=== PATIENT | female | born 1985 | race Two or more races ===

== ENCOUNTER 2022-04-03 09:22 | Outpatient (REF) | payer MEDICAID, SELFPAY ==
--- NOTE | ~2022-04-03 | XR_ITS ---
EXAMINATION: XR CHEST CLINICAL INFORMATION: Obesity COMPARISON: None TECHNIQUE: 2 views of the chest were obtained. FINDINGS: No significant abnormality is noted involving the heart, lungs, mediastinum, bony thorax or soft tissues. XR/XR chest 2V IMPRESSION: Unremarkable examination.
--- NOTE | 2022-04-03 09:41 | ECG_ITS ---
Test Reason : severe morbid obesity Blood Pressure : / mmHG Vent. Rate : 065 BPM Atrial Rate : 065 BPM P-R Int : 162 ms QRS Dur : 102 ms QT Int : 394 ms P-R-T Axes : 032 -08 021 degrees QTc Int : 409 ms Normal sinus rhythm Normal ECG No previous ECGs available Referred By: Leonard Garcia Electronically Signed By:ALEIDA DUNHAM MD
[2022-04-03 09:55] LABS: MANUAL DIFF FLAG NO
[2022-04-03 10:14] LABS: Basophils Percent Auto 0.3 % (0-2); Eosinophils Absolute Auto 0.2 X10*3/uL (0.0-0.4); Eosinophils Percent Auto 2.2 % (0-4); Hematocrit 38.8 % (37.0-47.0); Hemoglobin 12.3 g/dl (12.0-16.0); Imm Gran Abs Auto 0.03 X10*3/uL (0.00-0.03); Imm Gran Pct Auto 0.3 % (0.0-0.4); Lymphocytes Absolute Auto 1.8 X10*3/uL (1.2-4.9); Lymphocytes Percent Auto 20.3 % (20-40); Mean Corpuscular HGB Conc 31.7 g/dl (31.0-35.0); Mean Corpuscular Volume 85.1 fL (80.0-98.0); Mean Platelet Volume 10.4 fL (9.4-12.3); Monocytes Absolute Auto 0.5 X10*3/uL (0.1-1.2); Neutrophils Absolute Auto 6.3 x10*3/uL (2.0-8.3); Neutrophils Percent Auto 70.9 % (45-73); Platelet Count 295 X10*3/uL (160-400); Red Blood Count 4.56 X10*6/uL (4.20-5.50); Red Cell Distribution Width 12.2 % (11.0-16.0); White Blood Count 8.8 X10*3/uL (4.8-10.8)
[2022-04-03 10:22] LABS: Estimated Average Glucose 105 mg/dL; Hemoglobin A1c % 5.3 %
[2022-04-03 10:36] LABS: Alanine Aminotransferase 17 U/L (0-31); Albumin Level 4.5 g/dL (3.5-5.0); Alkaline Phosphatase 61 U/L (39-117); Anion Gap 14 (12-20); Aspartate Amino Transferase 14 U/L (5-31); Bilirubin Total 0.3 mg/dL (0.0-1.0); Blood Urea Nitrogen 13 mg/dL (9-16); C Reactive Protein 1.06 mg/dL (< or = 0.50); Calcium 9.2 mg/dL (8.4-10.2); Carbon Dioxide 23 mmol/L (22-29); Chloride 107 mmol/L (96-108); Cholesterol 207 mg/dL; Estimated Glomerular Filt Rate > 60; Glucose Random 88 mg/dL (60-115); HDL Cholesterol 41 mg/dL; Iron 52 mcg/dL (30-160); LDL Cholesterol Calculated 143 mg/dl; Percent Iron Saturation 17 % (15-50); Potassium 3.8 mmol/L (3.3-5.1); Sodium 140 mmol/L (135-145); Total Iron Binding Capacity 303 mcg/dL (228-428); Total Protein 7.5 g/dL (6.5-8.0); Triglycerides 115 mg/dL; Unsaturated Iron Binding 251 ug/dL
[2022-04-03 11:01] LABS: Ferritin 113 ng/mL (10-122); Insulin 19 uU/mL (2-29); Vitamin D 25-OH Total 31.2 ng/mL (>30)
[2022-04-03 11:05] LABS: Folate 18.7 ng/mL (> or = 4.0); Vitamin B12 262 pg/mL (200-900)
[2022-04-04 14:04] LABS: H Pylori Breath Test Positive (Negative)
[2022-04-05 13:51] LABS: Calcium (PTHI) 9.3 mg/dL (8.6-10.2); PTHI 101 pg/mL (16-77)
[2022-04-07 12:35] LABS: Vitamin B1 <6 nmol/L (8-30)
[2022-04-07 13:01] LABS: Vitamin A 50 mcg/dL (38-98)
[2022-04-07 23:07] LABS: Zinc 88 mcg/dL (60-130)
== END 2022-04-03 09:23 | disposition home or self-care (01) ==
LOC: HO.XRAY 09:22
PROVIDERS: Visit Provider Surgery
DX: E66.01 Morbid (severe) obesity due to excess calories (principal); I10 Essential (primary) hypertension
CPT/HCPCS: 36415; 71046; 80053; 80061; 82306; 82607; 82728; 82746; 83013; 83036; 83525; 83540; 83970; 84425; 84443; 84590; 84630; 85025; 86140; 93005; 99211

== ENCOUNTER 2022-04-07 07:54 | Outpatient (REF) | payer MEDICAID, SELFPAY ==
--- NOTE | ~2022-04-07 | US_ITS ---
EXAMINATION: US COMPLETE ABDOMEN WITH LIVER ELASTOGRAPHY CLINICAL INFORMATION: Obesity COMPARISON: None. TECHNIQUE: Real-time imaging of the abdominal viscera. Noninvasive ultrasound liver fibrosis assessment is performed using Juliette ElastPQ point quantification shear wave elastography (2D-SWE) with a C5-2 MHz transducer. Multiple elastography samples are obtained. FINDINGS: PANCREAS: The visualized pancreatic head and body are normal in appearance. The remainder of the pancreas is obscured from visualization by the overlying bowel gas. ABDOMINAL AORTA: The proximal and distal aortic segments are normal in caliber. Mid abdominal aorta is not well visualized due to bowel gas. INFERIOR VENA CAVA: Visualized portions are normal. LIVER: Echotexture is slightly increased. The liver is normal in size and contour. No focal lesion or intrahepatic biliary duct dilatation. The right lobe measures 16 cm in length. The left lobe measures 11 cm in length. Portal flow is normal/hepatopedal Shear wave liver elastography median stiffness is 1.5 m/s (reference: normal median stiffness is 1.3 m/s or less). IQR/median stiffness to assess sampling precision is 0.32 (reference: good quality data set is IQR/median stiffness of 0.15 or less). GALLBLADDER: Normal. The gallbladder is physiologically distended without evidence of stones, sludge, polyps, wall thickening or pericholecystic fluid. COMMON BILE DUCT: Slightly dilated measuring 0.8 cm in diameter. RIGHT KIDNEY: Normal. No hydronephrosis. No renal calculi or focal parenchymal lesions. The kidney measures 11 cm in maximum dimension. LEFT KIDNEY: Small 2 mm echogenic density questionable for a stone in the midpole. No hydronephrosis. No focal parenchymal lesions. The kidney measures 12 cm in maximum dimension. SPLEEN: Normal. The spleen measures 10 cm in maximum dimension. FREE FLUID: None. US/US abdomen comp w elastography IMPRESSION: 1. Impression: Limited exam. Echogenic liver probably representing fatty infiltration. Normal-appearing gallbladder. Slightly prominent common bile duct. Question small left renal stone. Limited visualization of the pancreas and aorta. 2. Liver elastography: Limited due to sampling error. REFERENCE: Society of Radiologists in Ultrasound Liver Stiffness Thresholds (2020): LIVER STIFFNESS THRESHOLDS: *Liver Stiffness equal or less than 1.3 m/s: High probability of being normal. *Liver Stiffness less than 1.7 m/s: In the absence of other known clinical signs, rules out compensated advanced chronic liver disease. *Liver Stiffness 1.7-2.1 m/s: Suggestive of compensated advanced chronic liver disease but need further test for confirmation. *Liver Stiffness over 2.1 m/s: Rules in compensated advanced chronic liver disease. *Liver Stiffness over 2.4 m/s: Suggestive of clinically significant portal hypertension. QUALITY OF DATA SET: *IQR/Median value equal or less than 0.15 implies a quality data set. *IQR/Median value over 0.15 implies a poor quality data set. SIGNIFICANT CHANGE FROM PRIOR EXAM: Significant change if liver stiffness measurement is 10% or greater from prior exam. OTHER CONSIDERATIONS: The stage of liver fibrosis may be overestimated in the setting of acute hepatitis, liver inflammation, elevated liver function tests, hepatic vascular congestion, obstructive cholestasis, non-fasting state, and infiltrative diseases such as amyloidosis and lymphoma. In some patients with NAFLD, the liver stiffness thresholds for compensated advanced chronic liver disease may be lower. In causes other than viral hepatitis and NAFLD, liver stiffness thresholds are not well established.
--- NOTE | ~2022-04-07 | FL_ITS ---
PROCEDURE: XR FLUOROSCOPY UPPER GI WITH AIR CLINICAL INFORMATION: Morbid/severe obesity due to excess calories. COMPARISON: None TECHNIQUE: Routine upper GI air-contrast study was performed in upright and lying position. FINDINGS: Following oral administration of thick barium and effervescent granules there is normal propagation of bolus from the oral cavity through the pharynx, esophagus into stomach without any evidence of obstruction, narrowing or stricture. The course, caliber and peristalsis of the stomach, duodenal bulb and the sweep is normal. The mucosal pattern of stomach and duodenum is normal. There is mild gastroesophageal reflux without hiatal hernia. FLUOROSCOPY TIME: 2.1 minutes DOSE AREA PRODUCT: 39.495 uGy-m2 (microgray-meter squared) FL/FL upper GI w air IMPRESSION: Mild gastroesophageal reflux otherwise unremarkable upper GI air-contrast study.
== END 2022-04-07 07:55 | disposition home or self-care (01) ==
LOC: HO.US 07:54
PROVIDERS: Visit Provider Surgery
DX: E66.01 Morbid (severe) obesity due to excess calories (principal); I10 Essential (primary) hypertension
CPT/HCPCS: 74246; 76705; 76981

== ENCOUNTER → 2022-04-20 09:19 | Outpatient (BNVA) | payer MEDICAID, SELFPAY | PROVIDERS: PCP Family Medicine; Visit Provider Dietitian, Registered | DX: E66.01 Morbid (severe) obesity due to excess calories (principal); Z68.41 Body mass index [BMI] 40.0-44.9, adult | CPT/HCPCS: 97802 ==

== ENCOUNTER → 2022-05-01 11:08 | Outpatient (BNVA) | payer MEDICAID, SELFPAY | PROVIDERS: PCP Family Medicine; Visit Provider Counselor Mental Health | DX: Z11.0 Encounter for screening for intestinal infectious diseases (principal); F32.A Depression, unspecified; E66.01 Morbid (severe) obesity due to excess calories | CPT/HCPCS: 90791; 99211 ==

== ENCOUNTER 2022-05-01 16:28 | Outpatient (REF) | payer MEDICAID, SELFPAY ==
[2022-05-02 13:57] LABS: H Pylori Breath Test Negative (Negative)
== END 2022-05-01 16:29 | disposition home or self-care (01) ==
LOC: HO.LNP 16:28
PROVIDERS: Visit Provider Physician Assistant Surgical
DX: Z01.818 Encounter for other preprocedural examination (principal)
CPT/HCPCS: 83013

== ENCOUNTER → 2022-06-26 08:25 | Outpatient (BNVA) | payer MEDICAID, SELFPAY | PROVIDERS: PCP Family Medicine; Visit Provider Surgery | DX: Z13.89 Encounter for screening for other disorder (principal) ==

== ENCOUNTER → 2022-07-21 08:42 | Outpatient (BNVA) | payer MEDICAID, SELFPAY | PROVIDERS: PCP Family Medicine; Visit Provider Surgery | DX: Z13.89 Encounter for screening for other disorder (principal) ==

== ENCOUNTER → 2022-08-21 08:49 | Outpatient (BNVA) | payer MEDICAID, SELFPAY | PROVIDERS: PCP Family Medicine; Visit Provider Surgery | DX: E66.9 Obesity, unspecified (principal); Z68.39 Body mass index [BMI] 39.0-39.9, adult; K21.9 Gastro-esophageal reflux disease without esophagitis; R11.0 Nausea; Z01.818 Encounter for other preprocedural examination ==

== ENCOUNTER → 2022-09-01 12:50 | Outpatient (BNVA) | payer MEDICAID, SELFPAY | PROVIDERS: PCP Family Medicine; Visit Provider Surgery ==

== ENCOUNTER 2022-09-12 06:04 | Inpatient (IN) | payer MEDICAID, SELFPAY ==
[2022-09-04 08:35] LABS: MANUAL DIFF FLAG NO
[2022-09-04 09:22] LABS: Basophils Percent Auto 0.3 % (0-2); Eosinophils Absolute Auto 0.2 X10*3/uL (0.0-0.4); Eosinophils Percent Auto 2.6 % (0-4); Hematocrit 42.1 % (37.0-47.0); Hemoglobin 13.3 g/dl (12.0-16.0); Imm Gran Abs Auto 0.02 X10*3/uL (0.00-0.03); Imm Gran Pct Auto 0.2 % (0.0-0.4); Lymphocytes Absolute Auto 2.1 X10*3/uL (1.2-4.9); Lymphocytes Percent Auto 23.6 % (20-40); Mean Corpuscular HGB Conc 31.6 g/dl (31.0-35.0); Mean Corpuscular Hemoglobin 26.7 pg (27.0-33.0); Mean Corpuscular Volume 84.5 fL (80.0-98.0); Mean Platelet Volume 10.5 fL (9.4-12.3); Monocytes Absolute Auto 0.6 X10*3/uL (0.1-1.2); Monocytes Percent Auto 6.6 % (2-11); Neutrophils Absolute Auto 5.8 x10*3/uL (2.0-8.3); Neutrophils Percent Auto 66.7 % (45-73); Partial Thromboplastin Time 34.5 SEC (26.0-36.4); Platelet Count 280 X10*3/uL (160-400); Red Blood Count 4.98 X10*6/uL (4.20-5.50); Red Cell Distribution Width 11.8 % (11.0-16.0); White Blood Count 8.7 X10*3/uL (4.8-10.8)
[2022-09-04 09:31] LABS: Estimated Average Glucose 105 mg/dL; Hemoglobin A1c % 5.3 %
[2022-09-04 10:13] LABS: Anion Gap 15 (12-20)
[2022-09-04 10:36] LABS: Alanine Aminotransferase 13 U/L (0-31); Albumin Level 4.3 g/dL (3.5-5.0); Alkaline Phosphatase 61 U/L (39-117); Aspartate Amino Transferase 11 U/L (5-31); Bilirubin Total 0.3 mg/dL (0.0-1.0); C Reactive Protein 0.86 mg/dL (< or = 0.50); Calcium 9.1 mg/dL (8.4-10.2); Carbon Dioxide 22 mmol/L (22-29); Chloride 107 mmol/L (96-108); Cholesterol 208 mg/dL; Estimated Glomerular Filt Rate > 60; Glucose Random 88 mg/dL (60-115); HDL Cholesterol 39 mg/dL; Insulin 18 uU/mL (2-29); LDL Cholesterol Calculated 153 mg/dl; Potassium 4.6 mmol/L (3.3-5.1); Sodium 139 mmol/L (135-145); TSH reflex Free T4 2.22 uIU/mL (0.32-4.0); Total Protein 7.1 g/dL (6.5-8.0); Triglycerides 81 mg/dL
[2022-09-04 12:09] LABS: Blood Urea Nitrogen 11 mg/dL (9-16)
[2022-09-05 14:29] VITALS: BMI 38.7
--- NOTE | 2022-09-08 18:20 | MHC.SHP ---
Pre-Procedural Eval Section A Date of Service: 09/08/22 The patient is an INPATIENT: Yes The History & Physical has been completed within 30 days and I have reviewed it.: Yes Section B Chief Complaint: obesity Relevant Family History (Specify if Yes): No Relevant Social History: None Present Medications: None Medical History: No relevant PMH History of Previous Operations: No relevant previous surgery Allergies: Allergies Allergy/AdvReac Type Severity Reaction Status Date / Time pineapple Allergy Severe Anaphylaxis Verified 09/05/22 14:26 seafood Allergy Intermediate Hives Verified 09/05/22 14:26 Review of Systems Sugical H&P ROS: Negative: Constitution, Cardiovascular, Respiratory, Neurological, Psychiatric, Hem-Onc, Allergic/Immunologic, Gastrointestinal, Genitourinary, Musculoskeletal, Integumentary, Endocrine and Eyes/Ears/Nose/Throat Exam Surgical H&P Exam: Normal: HEENT, Normal: Heart, Normal: Lungs, Normal: Extremities, Normal: Abdomen, Normal: Skin and Normal: Neurological Plan Diagnosis/Plan: Unchanged I have reviewed the history and physical and performed a pertinent physical examination on my patient. No changes have occurred unless specified. Time Spent With Patient Time: Total time managing care of this patient today ____ minutes.
--- NOTE | 2022-09-11 10:42 | P.CONAN_ITS ---
Documented by User: Keli Phelps NP 09/11/22 10:43 HPI - Anesthesia Eval Consult details Narrative: 37yo F for Gastrectomy Sleeve,EGD,poss diaphragmatic hernia,poss ventral hernia,poss open, PMFSH Active Problems Active Problems: All Active Problems (Updated 05/01/22 @ 13:23 by Mary Mcdonald) Hypertension (Acute) Vitamin B12 deficiency (Acute) Vitamin B1 deficiency (Acute) H. pylori infection (Acute) Obesity (Acute) BMI 39.0-39.9,adult (Acute) Depression, unspecified (Acute) Back pain (Acute) Migraines (Acute) Morbid obesity (Acute) Past Medical History Medical History (Updated 09/12/22 @ 07:49 by Leonard Garcia MD) Back pain Migraines Morbid obesity Family History Family History (Updated 03/17/22 @ 08:54 by Hayley Tee Lizeth) Mother Diabetes Hypertension Epilepsy High cholesterol Father No problems noted. Son No problems noted. Daughter No problems noted. Son Asthma Daughter No problems noted. Son No problems noted. Son No problems noted. Son No problems noted. 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 If so, by whom?: No Do you feel safe in your current relationship?: Yes Is there a partner from a previous relationship who is making you feel unsafe now?: No Are you made to feel afraid or neglected: No Are you DNR?: No Advance Directives: No Advance Directives Information Provided: Yes Advance Directives on File: No Do you have thoughts of harming others: None Do you have a plan to hurt others: No Plan Recently lost weight without trying: No Eating poorly because of decreased appetite: No Nutrition Risks: No Nutritional Risk Patient : No : No Meds Allergies Allergy/AdvReac Type Severity Reaction Status Date / Time pineapple Allergy Severe Anaphylaxis Verified 09/12/22 06:16 seafood Allergy Intermediate Hives Verified 09/12/22 06:16 Home Medications Medication Instructions Recorded Confirmed Last Taken Type ascorbic acid (vitamin C) 500 mg 500 mg PO DAILY 03/17/22 09/12/22 09/11/22 History capsule cholecalciferol (vitamin D3) 25 25 mcg PO DAILY 03/17/22 09/12/22 09/11/22 History mcg (1,000 unit) capsule sumatriptan succinate 50 mg tablet 50 mg PO Q2-4H PRN Migraine 03/29/22 09/12/22 09/11/22 History Headache Exam Exam Date and Time: September 11, 2022 1042 Height,Weight and Vital Signs: Height 5 ft 1 in Weight 92.986 kg Pertinent Lab Results Pertinent Lab Results: Laboratory Tests 09/04/22 09/04/22 09/04/22 08:28 08:34 08:34 WBC 8.7 RBC 4.98 Hgb 13.3 Hct 42.1 MCV 84.5 MCH 26.7 L MCHC 31.6 RDW 11.8 Plt Count 280 MPV 10.5 Immature Gran % (Auto) 0.2 Neut % (Auto) 66.7 Lymph % (Auto) 23.6 Emanuel % (Auto) 6.6 Eos % (Auto) 2.6 Baso % (Auto) 0.3 Lymph # (Auto) 2.1 Emanuel # (Auto) 0.6 Eos # (Auto) 0.2 Baso # (Auto) 0.0 Abs Immat Gran (auto) 0.02 Absolute Neuts (auto) 5.8 Absolute Nucleated RBC 0.000 Nucleated RBC % (auto) 0.0 PT 12.0 INR 1.0 APTT 34.5 Sodium Potassium Chloride Carbon Dioxide Anion Gap BUN Creatinine Estim Creat Clear Calc Estimated GFR Random Glucose Estimat Average Glucose Hemoglobin A1c % Insulin Level Calcium Total Bilirubin AST ALT Alkaline Phosphatase C-Reactive Protein Total Protein Albumin Triglycerides Cholesterol LDL Cholesterol, Calc HDL Cholesterol TSH Blood Type O Negative Antibody Screen NEGATIVE 09/04/22 09/04/22 08:34 08:34 WBC RBC Hgb Hct MCV MCH MCHC RDW Plt Count MPV Immature Gran % (Auto) Neut % (Auto) Lymph % (Auto) Emanuel % (Auto) Eos % (Auto) Baso % (Auto) Lymph # (Auto) Emanuel # (Auto) Eos # (Auto) Baso # (Auto) Abs Immat Gran (auto) Absolute Neuts (auto) Absolute Nucleated RBC Nucleated RBC % (auto) PT INR APTT Sodium 139 Potassium 4.6 D Chloride 107 Carbon Dioxide 22 Anion Gap 15 BUN 11 Creatinine 0.84 Estim Creat Clear Calc TNP Estimated GFR > 60 Random Glucose 88 Estimat Average Glucose 105 Hemoglobin A1c % 5.3 Insulin Level 18 Calcium 9.1 Total Bilirubin 0.3 AST 11 ALT 13 Alkaline Phosphatase 61 C-Reactive Protein 0.86 H Total Protein 7.1 Albumin 4.3 Triglycerides 81 Cholesterol 208 LDL Cholesterol, Calc 153 HDL Cholesterol 39 TSH 2.22 Blood Type Antibody Screen Narrative Narrative: EKG 03/2022 Vent. Rate : 065 BPM ? ? Atrial Rate : 065 BPM ?? P-R Int : 162 ms? QRS Dur : 102 ms ? ? QT Int : 394 ms ? ? ? P-R-T Axes : 032 -08 021 degrees ?? QTc Int : 409 ms ? Normal sinus rhythm Normal ECG No previous ECGs available Assessment and Plan Assessment Anesthesia Assessment: Chart Reviewed Documented by User: William Tate MD 09/12/22 16:33 [facility] Past Medical History Medical History (Updated 09/12/22 @ 07:49 by Leonard Garcia MD) Back pain Migraines Morbid obesity Functional capacity: independent ambulation Family History Family History (Updated 03/17/22 @ 08:54 by NEGAR Pope) Mother Diabetes Hypertension Epilepsy High cholesterol Father No problems noted. Son No problems noted. Daughter No problems noted. Son Asthma Daughter No problems noted. Son No problems noted. Son No problems noted. Son No problems noted. Family history of problems with anesthesia: No Surgical History Surgical History (Updated 09/12/22 @ 10:23 by Sanam García PA-C) H/O elbow surgery H/O: hysterectomy History of delivery History of Problems with Anesthesia: No Social History Social History (Updated 09/05/22 @ 14:29 by Helen Babin RN) Household Members: Children Housing: Apartment Are you a primary behavioral health care coordinator to a significant other at home: Yes (twins 11, 14+18 year old) Do you presently have visiting nurse or other home services: No Alcohol intake: never Patient Tobacco Use Status: Never used Tobacco Use of substances other than those prescribed or required for medical reasons: No Have you been hit, kicked, punched, or otherwise hurt by someone within the past year? If so, by whom?: No Do you feel safe in your current relationship?: Yes Is there a partner from a previous relationship who is making you feel unsafe now?: No Are you made to feel afraid or neglected: No Are you DNR?: No Advance Directives: No Advance Directives Information Provided: Yes Advance Directives on File: No Do you have thoughts of harming others: None Do you have a plan to hurt others: No Plan Recently lost weight without trying: No Eating poorly because of decreased appetite: No Nutrition Risks: No Nutritional Risk Patient : No : No Meds Allergies Allergy/AdvReac Type Severity Reaction Status Date / Time pineapple Allergy Severe Anaphylaxis Verified 09/12/22 06:16 seafood Allergy Intermediate Hives Verified 09/12/22 06:16 Home Medications Medication Instructions Recorded Confirmed Last Taken Type ascorbic acid (vitamin C) 500 mg 500 mg PO DAILY 03/17/22 09/12/22 09/11/22 History capsule cholecalciferol (vitamin D3) 25 25 mcg PO DAILY 03/17/22 09/12/22 09/11/22 History mcg (1,000 unit) capsule sumatriptan succinate 50 mg tablet 50 mg PO Q2-4H PRN Migraine 03/29/22 09/12/22 09/11/22 History Headache Exam Airway Mallampati Class: III TM Dist: >3cm Neck ROM: Full Partial: Upper (3) Loose/Missing/Broken Teeth: Yes (loose upper left tooth) Heart: S1,S2 Lungs: b/l breath sounds Assessment and Plan Assessment Anesthesia Assessment: Anesthesia Plan Discussed Final Anesthetic Review Family History of Problems with Anesthesia: No History of Problems with Anesthesia: No ASA Class: II Final Preanesthetic Review: Meds/Allgs Chart Reviewed, Consent Obtained/Reviewed and Anes Risks/Benef Reviewed Patient Risk: Intermediate Procedure Risk: Intermediate Anesthetic Plan Anesthetic Plan: GA Disposition: Standard PACU
[2022-09-11 12:36] LABS: COVID-19 Test Negative (Negative); IDNOW Serial# BCCEAD1C
[2022-09-12] VITALS (15 sets, daily range): BP systolic 115–170; BP diastolic 65–95; PULSE 68–98; RESP 14–20; TEMP 36.3–37.2; O2SAT 96–100
[2022-09-12] MEDS: Lactated Ringers 1,000 ML 999 ML IV (07:09)
[2022-09-12] MEDS: Lactated Ringers 1,000 ML 100 ML IVCONT ×3 (07:09→23:39)
--- NOTE | 2022-09-12 07:11 | PHA.MEDREC ---
Pharmacy Consult ? Medication Reconciliation Pharmacy has completed the medication reconciliation. Reviewed med rec done by nursing
--- NOTE | 2022-09-12 07:45 | PM.OP ---
Brief Operative Note Date of Service: 09/12/22 Pre-op diagnosis: Severe obesity with comorbidities (see below) Post-op diagnosis: same Procedure: INITIAL PATIENT BMI ON PRESENTATION AT OUR OFFICE: 41.4 kg/m2 LAST BMI BEFORE SURGERY: 38.7 kg/m2 COMORBIDITIES:hypertension, migraines, back pain, GERD ?The patient presented to the Weight Management Program with significant obesity that was negatively impacting the patient's comorbidities as listed above.? The program is a phased program with a special focus on preoperative medical weight management to promote substantial weight loss and prepare the patients for the second phase of the program: bariatric surgery. The patient participated in an intensive weekly lifestyle ?intervention and exercise program during which the patient ?has lost between the initial office visit and the last preoperative visit 16.3 lbs, or 7.44% of initial actual body weight. It was deemed appropriate for the patient to now have bariatric surgery. In light of the current Covid-19 pandemic and the well documented strong association of obesity and increased risk of worse outcomes if infected with Covid-19 (REFERENCES:https://pubmed.ncbi.nlm.nih.gov/53847871/,?https://pubmed.ncbi.nlm.nih.gov/31882406/), any delay in undergoing bariatric surgery may lead to the patient's worsening health condition and increased?risk of more severe Covid-19 disease if infected. In addition a recent?study from [facility] published in [facility] [facility] on 06/13/2021 ([email or web address]) found that, among patients with obesity, substantial weight loss achieved with surgery was associated with improved outcomes of COVID-19 infection. The findings suggest that obesity can be a modifiable risk factor for the severity of COVID-19 infection. In addition, the patient met the BMI-criteria for bariatric surgery based on the BMI on initial presentation. The patient should not be penalized for achieving such weight loss because ?it is not sustainable long-term without surgical intervention and it was achieved in preparation for bariatric surgery ?under my direction and based on my published research ([email or web address]).pdf and?https://www.soard.org/article/[email or web address](32)60715-X/pdf) ?that a 10% preoperative weight loss improves long-term weight loss after surgery and reduces perioperative complications.? Insurance carriers such as [facility] have endorsed my recommendations ?and have included in their policies criteria to include a 10% preoperative weight loss requirement. PROCEDURE: Esophago-gastroscopy, laparoscopic sleeve gastrectomy and laparoscopic gastropexy INDICATIONS: This is a 37 year-old female who was electively scheduled for laparoscopic, possibly open sleeve gastrectomy. The risks and complications of the procedure were discussed with the patient in advance, particularly the possibility of ; pulmonary embolism; staple line leak; bleeding; GERD; cardiac, pulmonary, or renal complications; as well as long-term problems such as insufficient weight loss, vitamin deficiency, strictures, or ulcers. The patient understood all the risks, and was in agreement to proceed with surgery. DESCRIPTION OF PROCEDURE: After informed consent was obtained from the patient, the patient was given preoperative antibiotics, and was transferred to the operating room. After successful induction of general anesthesia, pneumatic compression devices were placed on both lower extremities. An upper endoscopy was performed next. The oropharynx and esophagus appeared to be within normal limits. There was no diaphragmatic hernia present consistent with the findings of the preoperative upper GI. The stomach was entered. Then after all fluid and air were suctioned and the stomach was fully decompressed, the scope was withdrawn and secured in the mid esophagus. The patient was then prepped and draped in the usual sterile manner, and abdominal access was established at the right upper quadrant with the Onur technique. A 12 mm blunt port was inserted, and the abdomen was insufflated with CO2 to a pressure of 15 mmHg. Under direct visualization, additional ports were placed, specifically two 5 mm Versi-step ports to the left upper quadrant, and a 5 mm Versi-Step port to the right upper quadrant. 1% lidocaine plain was used to infiltrate all port sites as well as all fascia defects. Following that, the patient was placed in a steep reverse Trendelenburg position. An additional 5 mm port was placed to the right flank for the Mediflex retractor that was used to retract the left lobe of the liver. The gastro-esophageal fat pad was opened with the ultrasonic device (Thunderbeat, Olympus) and the anterior esophagus and hiatus were exposed. The angle of His was opened with the ultrasonic device the fundus of the stomach from any diaphragmatic and splenic attachments. I then opened the gastrocolic ligament between the transverse colon and the greater curvature of the stomach with the ultrasonic device to enter the lesser sac and facilitate the ligation of the short gastric vessels. I started at a mid-point along the greater curvature and using the Thunderbeat, all short gastric vessels were divided all the way to the angle of His until the left lavonne was completely dissected at its entirety. I then divided the gastro-colic ligament distally to a distance of about 3-4 cm proximal to the pylorus. The stomach was then divided transversely with one Endo JESUS-45 purple, four JESUS-45 orange loads and two JESUS-60 articulating orange loads using the AEON stapler and loads. Every effort was made that the gastric sleeve had a tubular shape and an even caliber throughout. Once the sleeve resection was completed, the staple line of the gastric sleeve was reinforced with Hemoclips. The resected stomach was retrieved without difficulty from the Onur port. A gastropexy was then performed in order to prevent postoperative GERD and partial gastric volvulus. Several interrupted 2.0 Surgidac sutures were placed between the sleeve's staple line and the previously divided greater omentum and gastro-colic ligament using the Endo-Stitch device. ?An upper endoscopy was performed. There was no narrowing at the GE junction. The scope was easily advanced all the way to the pylorus which was clearly visualized. There was no narrowing anywhere and the sleeve's caliber was even throughout. The sleeve's staple line was inspected and there was no evidence of ischemia, bleeding or dehiscence. At that point the gastroscope was withdrawn from the patient?s mouth while we were decompressing the bowel and the stomach from any remaining air. I looked into the lesser sac to see how the sleeve was situating and it was situating well. There was no bleeding from the staple line, spleen, or short gastric vessels. The Mediflex retractor was removed, and the undersurface of the liver was inspected and there was no bleeding. The patient was placed in supine position. I closed the fascial defect of the 12 mm port site with a figure of eight #1 Polysorb suture. Then 30cc Ropivacaine plain with 10 mg of Dexamethasone were used to infiltrate the fascial closure as well as all skin incisions. A total of 7ml Zynrelef was applied in the Onur wound. At this point, the abdomen was deflated, all ports were removed under direct vision, and no bleeding was noted from any of the port sites. The skin incisions were irrigated with saline and were closed with 4-0 absorbable monofilament sutures. Steri-Strips and OpSites were used to cover all incisions. The patient was extubated and was transferred in stable condition to the recovery room for further care. I was present and performed all pat parts of the procedure. Ms. García was the insurance account assistant. There were no residents to assist with this case. Román Garcia MD, PhD, FACS Surgeon: Leonard Garcia MD Anesthesia: GETA, local and other (TAP block and 7ml Zynrelef) Was an Circus Rider used for this Procedure?: No Circus Rider: Sanam García Estimated blood loss (mL): 10 IV fluids (mL): 2,600 Urine output (mL): 0 (No Quiñones to record output) Pathology: other (Stomach) Condition: stable Disposition: PACU
--- NOTE | 2022-09-12 07:47 | P.PNGS_ITS ---
Subjective Subjective Date of Service: 09/13/22 Interval history: Feels well. Mild incisional pain. She is tolerating phase 1 bariatric diet Physical Exam Vital Signs: Vital Signs: Last Vital Signs Temp 98.9 F 09/12/22 06:23 Pulse 98 09/12/22 06:23 Resp 16 09/12/22 06:23 BP 170/95 H 09/12/22 06:23 Pulse Ox 100 09/12/22 06:23 O2 Del Method Room Air 09/12/22 06:23 BMI result Body Mass Index 38.7 GI: Inspection: Yes normal to inspection, Yes incision (clean, dry and intact) and Yes obesity Extrem: Right lower extremity: normal to inspection (no calf tenderness) Left lower extremity: normal to inspection (no calf tenderness) Objective Data Active Medications Lactated Ringer's (Lr) 1,000 mls @ 100 mls/hr IVCONT .Q10H FORMERLY [facility], 1928–1983 Last Admin: 09/12/22 07:09 Dose: 100 mls/hr Documented By: KAYLEY Lactated Ringer's (Lr) 1,000 mls @ 999 mls/hr IV .Q1H1M FOR[facility]LY [facility], 1928–1983 Stop: 09/12/22 08:15 Last Admin: 09/12/22 07:09 Dose: 999 mls/hr Documented By: KAYLEY Labs 09/04/22 08:34 09/04/22 08:34 Labs: Laboratory Results - last 24 hr 09/11/22 12:10 COVID-19 ([facility]) Negative COVID-19 Clin Com See Note Procedures Date of Service Date of Service: 09/13/22 Progress Note: A&P Assessment and plan (1) Obesity: Status: Acute Assessment and Plan: s/p laparoscopic sleeve gastrectomy and gastropexy Doing well Will check am labs and if OK the patient will be discharged home (2) BMI 38.0-38.9,adult: Status: Acute (3) GERD (gastroesophageal reflux disease): Status: Acute (4) Migraines: Status: Acute (5) Back pain: Status: Acute (6) Depression, unspecified: Status: Acute (7) Hypertension: Status: Acute (8) S/P laparoscopic sleeve gastrectomy: Status: Acute Time Spent With Patient Time: Total time managing care of this patient today ____ minutes. Quality Stroke Does the patient have a stroke diagnosis?: No VTE Prior VTE?: No VTE Risk Level:: Surgical - moderate VTE Device Contraindication: N/A - Device Ordered VTE Drug Contraindication: Treatment Not Indicated
[2022-09-12] MEDS: ceFAZolin Sodium/Dextrose,Iso 2 GM/50 ML PIGGYBACK IV ×2 (07:57→13:48)
[2022-09-12] MEDS: Acetaminophen 1,000 MG/100 ML PIGGYBACK 400 MG IV (09:35)
--- NOTE | 2022-09-12 10:24 | PM.DS ---
DS: Providers Provider Date of Service: 09/13/22 Date of admission: 09/12/22 06:04 Primary care physician: Unknown Physician DS: Diagnosis Discharge Diagnosis (1) Obesity: Status: Acute (2) BMI 38.0-38.9,adult: Status: Acute (3) GERD (gastroesophageal reflux disease): Status: Acute (4) Migraines: Status: Acute (5) Back pain: Status: Acute (6) Depression, unspecified: Status: Acute (7) Hypertension: Status: Acute DS: Summary Hospital Course Hospital Course: ADMITTING DIAGNOSIS: morbid obesity, migraines DISCHARGE DIAGNOSIS: same, s/p laparoscopic sleeve gastrectomy PAST SURGICAL HISTORY: scetin and hysterectomy PROCEDURE: upper endoscopy, laparoscopic sleeve gastrectomy DISCHARGE SUMMARY: History of Present Illness: The patient is a 37 year-old woman with a BMI of 41.3 kg/m2 and associated co-morbidities as described above. The patient had extensive work-up, lost 8.7 lbs preoperatively and was electively scheduled for laparoscopic, possible open sleeve gastrectomy and gastropexy. Risks and complications of the surgery were discussed with the patient in advance, particularly the possibility of , pulmonary embolism, anastomotic leak, bleeding, bowel injury, GERD, cardiac, renal or pulmonary complications. The patient understood all the risks and was in agreement with the surgical plan. Hospital Course: The patient underwent an uneventful laparoscopic sleeve gastrectomy with gastropexy on the day of admission. Postoperatively, the patient was transferred to the surgical floor. The patient received IV Acetaminophen and IV dilaudid for pain control. Patient was started on bariatric phase 1 diet POD #0. On postoperative day one, the patient was feeling well without nausea, vomiting, fevers, or tachycardia. The patient had some mild incisional pain and the abdomen was soft. On the morning of postoperative day one, the patient was continued on 1 ounce of water or ice every half hour. During the day, the patient did fairly well, having some incisional pain, but able to ambulate adequately and to tolerate liquids well. Since the patient is doing well, we decided that the patient was ready to be discharged. The patient was given instructions to follow-up with me next week and to call my office for any fever over 101, persistent abdominal pain, nausea, vomiting, GERD, symptoms of DVT such as calf tenderness, or leg swelling, or pulmonary embolism such as chest pain or shortness of breath. The patient was also instructed to drink 40-60 ounces of liquids per day using the 1-ounce cups. The patient had been given prescriptions for Tylenol for pain, Zofran prn for nausea, and pantoprazole and carafate previously. The patient was encouraged to ambulate and use the incentive spirometer. The patient was allowed to shower, but no baths, and encouraged to stay active at home. All of these instructions were given to the patient personally. All questions were answered and the patient understood all instructions, the instructions were also given to the patient in print. Time Spent with Patient Time attestation: Total time managing care of this patient today ____ minutes. Discharge coordination time: Less than 30 minutes Quality: Safe Use of Opioids Does Pt have an Active Cancer Diagnosis on the Problem List?: No Quality: Stroke Does the patient have a stroke diagnosis?: No Physical Exam Vital Signs: Vital Signs: Last Vital Signs Temp 98.9 F 09/12/22 06:23 Pulse 98 09/12/22 06:23 Resp 16 09/12/22 06:23 BP 170/95 H 09/12/22 06:23 Pulse Ox 100 09/12/22 06:23 O2 Del Method Room Air 09/12/22 06:23 BMI result Body Mass Index 38.7 DS: Data Data Completed and Pending Pending studies at discharge: Pending at discharge 09/12/22 09:27 Surgical [PTH] Routine Labs on day of discharge: Laboratory Results - last 24 hr 09/11/22 12:10 COVID-19 ([facility]) Negative COVID-19 Clin Com See Note Discharge Plan Discharge Anticipated Discharge Date/Time: 09/13/22 10:23 Patient Disposition: Home, Self-Care Discharge Diagnosis: s/p sleeve gastrectomy Referrals: Physician,Unknown J [Primary Care Provider] - 1 Week Discharge Medications: Continued sumatriptan succinate 50 mg tablet 50 mg PO Q2-4H PRN (Reason: Migraine Headache) Rx Instructions: do not exceed 4 doses per 24 hrs pantoprazole 40 mg tablet,delayed release (DR/EC) 40 mg PO DAILY Qty: 30 2RF sucralfate 100 mg/mL suspension 10 ml PO BID Qty: 400 2RF ondansetron HCl 4 mg tablet 4 mg PO Q12H Qty: 20 0RF Rx Instructions: Use only if you have nausea as needed Discontinued mecobalamin (vitamin B12) 1,000 mcg tablet,disintegrating 1,000 mcg sublingual DAILY Qty: 30 2RF Rx Instructions: place tablet under tongue and allow to dissolve for at least30 secs before swallowing thiamine HCl (vitamin B1) 100 mg tablet 100 mg PO DAILY Qty: 30 2RF cholecalciferol (vitamin D3) 25 mcg (1,000 unit) capsule 25 mcg PO DAILY ascorbic acid (vitamin C) 500 mg capsule 500 mg PO DAILY Discharge Orders: Discharge Order (Routine); Ordered 09/13/22 Ordered By: Leonard Garcia Activity on Discharge: No heavy lifting Stand Alone Forms: Patient Portal Discharge page Care Plan Goals: weight loss Health Concerns: obesity Plan of Treatment: No tub baths, sex or returning to work until discussed at first post op appointment. No exercise, alcohol, tobacco or illegal drug use. Continue to use incentive spirometer hourly while awake. Walk in home for 5- 10 minutes every 2 hours during the first week. Continue phase 1 diet today and start phase 2 diet tomorrow morning. Follow all instructions in the bariatric handbook and call with any questions. 1. Please call your doctor or come back to the emergency room should any new symptoms arise. 2. You will receive a courtesy call from [facility] 24-48 hours after discharge. 3. Activity: abstain from alcohol, practice limited stair climbing, no bending, no driving, no exercise, no illicit substances, no lifting, no sex, no tub bath, no work. 4. Diet: continue as discussed with bariatric team.. 5. Dressing Change/Wound Care: Do not change or remove surgical dressings unless they are wet or soiled. 6. Call your doctor if: - Your temperature exceeds 101.5 F - You experience excessive pain or swelling - You have an unexpected reaction to medication - You have excessive bleeding - You experience continued vomiting/nausea - Your incision begins to separate - Your incision shows signs of infection such as increased redness, swelling, excessive pain, heat, or drainage (light blood or clear fluid is normal) 7. General instructions: No lifting greater than 5 lbs for the next 4 weeks[address] within 24 hours of taking narcotic pain medications. If you do not move your bowels in the next 2 days, please take milk of magnesia over the counter. Please follow the post op diet and do not advance your diet until you are seen in the office in about 2 weeks. Please walk around your home every hour or two to prevent blood clots from forming in your legs. You do not need to wake from sleeping to walk. Please sleep in a bed or couch to prevent kinking at the hips and knees. Please take your incentive spirometer (your lung broke worker) home with you and use it for the next few days to prevent pneumonias. You may shower, no hot tubs, baths or swimming pools. Please call the office with any questions or concerns such as increasing abdominal pain, fever, chills, shortness of breath, chest pain, leg pain or swelling, or redness or drainage from your incisions. Do not hesitate to contact the office with any questions at . The patient's medical history has been reviewed and they are considered low risk for post op DVT and therefore DVT prophylaxis is not considered necessary. Travel after surgery was reviewed. The patient has not disclosed any travel plans during the first 30 days after surgery and they have been advised that within the first 30 days after surgery any bus, plane, train or car travel over 2 hours in duration is contraindicated due to the possibility of developing blood clots from immobility. Any travel, needs to include periods of ambulation of 10 minutes in duration every 2 hours. The patient was instructed to discuss any plans for travel during this period with their bariatric surgeon. Assessment: stable, post op sleeve gastrectomy
[2022-09-12 11:20] LABS: Hematocrit 37.1 % (37.0-47.0); Hemoglobin 12.1 g/dl (12.0-16.0)
[2022-09-12 12:06] LABS: Anion Gap 17 (12-20); Blood Urea Nitrogen 9 mg/dL (9-16); Calcium 8.5 mg/dL (8.4-10.2); Carbon Dioxide 18 mmol/L (22-29); Chloride 108 mmol/L (96-108); Creatinine Clr Calc Pharmacy 96.7; Estimated Glomerular Filt Rate > 60; Glucose Random 150 mg/dL (60-115); Potassium 3.6 mmol/L (3.3-5.1); Sodium 139 mmol/L (135-145)
[2022-09-12] MEDS: Acetaminophen 1,000 MG/100 ML PIGGYBACK 16.7 MG IV ×2 (15:28→20:58)
[2022-09-12] MEDS: Famotidine/PF 20 MG/2 ML VIAL IVPUSH ×2 (15:32→20:58)
[2022-09-12] MEDS: ondansetron HCL 4 MG/2 ML VIAL IVPUSH ×2 (15:34→22:27)
[2022-09-12] MEDS: 0.9 % Sodium Chloride Flush 3 ML SYRINGE IVFLUSH (20:58)
[2022-09-13] MEDS: Acetaminophen 1,000 MG/100 ML PIGGYBACK 16.7 MG IV (02:53)
[2022-09-13 03:08] VITALS: BP 143/82; PULSE 81; RESP 16; TEMP 36.8; O2SAT 99
[2022-09-13] MEDS: ondansetron HCL 4 MG/2 ML VIAL IVPUSH (05:40)
[2022-09-13 06:36] LABS: MANUAL DIFF FLAG NO
[2022-09-13 06:41] LABS: Basophils Percent Auto 0.1 % (0-2); Eosinophils Percent Auto 0.1 % (0-4); Hematocrit 33.9 % (37.0-47.0); Hemoglobin 11.1 g/dl (12.0-16.0); Imm Gran Abs Auto 0.07 X10*3/uL (0.00-0.03); Imm Gran Pct Auto 0.5 % (0.0-0.4); Lymphocytes Percent Auto 6.8 % (20-40); Mean Corpuscular HGB Conc 32.7 g/dl (31.0-35.0); Mean Corpuscular Hemoglobin 27.6 pg (27.0-33.0); Mean Corpuscular Volume 84.3 fL (80.0-98.0); Mean Platelet Volume 10.5 fL (9.4-12.3); Monocytes Absolute Auto 1.2 X10*3/uL (0.1-1.2); Monocytes Percent Auto 7.9 % (2-11); Neutrophils Absolute Auto 12.7 x10*3/uL (2.0-8.3); Neutrophils Percent Auto 84.6 % (45-73); Platelet Count 237 X10*3/uL (160-400); Red Blood Count 4.02 X10*6/uL (4.20-5.50); Red Cell Distribution Width 11.6 % (11.0-16.0)
[2022-09-13 06:57] LABS: Anion Gap 13 (12-20); Blood Urea Nitrogen 8 mg/dL (9-16); Calcium 8.6 mg/dL (8.4-10.2); Carbon Dioxide 21 mmol/L (22-29); Chloride 110 mmol/L (96-108); Creatinine Clr Calc Pharmacy 111.7; Estimated Glomerular Filt Rate > 60; Glucose Random 86 mg/dL (60-115); Potassium 4.3 mmol/L (3.3-5.1); Sodium 140 mmol/L (135-145)
[2022-09-13] MEDS: Famotidine/PF 20 MG/2 ML VIAL IVPUSH (07:47)
[2022-09-13 07:57] VITALS: BP 147/74; PULSE 68; RESP 20; TEMP 37.1; O2SAT 99
[2022-09-13 09:02] VITALS: O2SAT 99
--- NOTE | 2022-09-13 09:12 | MHC.CM.PN ---
pt is dcd today she is indepedent cm intervention is not indicated dc plan home no servceis
--- NOTE | 2022-09-13 15:14 | HO.POSTANES ---
Post Anesthesia Evaluation Post Anesthesia Evaluation Vital Signs: Vital Signs Temp Pulse Resp BP Pulse Ox O2 Del Method 09/13/22 09:02 99 Room Air 09/13/22 07:57 98.8 F 68 20 147/74 H 99 Room Air Anesthesia: General Endotracheal-GETA Mental Status: Awake Pain Control: Satisfactory Nausea/Vomiting: None Hydration: Adequate Anesthesia-Related Issues: No Anes. Related Issues
== END 2022-09-13 09:30 | disposition home or self-care (01) | DRG 403 ==
LOC: HO.SSSA 10:24 → HO.S3 14:00
PROVIDERS: Physician Assistant; Physician Assistant Surgical; Admitting Provider Surgery; Visit Provider Surgery
PROC: 0DB64Z3 Excision of Stomach, Percutaneous Endoscopic Approach, Vertical (ICD-10-PCS; CPT 43845; principal; 2022-09-12 07:30)
DX: E66.01 Morbid (severe) obesity due to excess calories (principal); F32.A Depression, unspecified; I10 Essential (primary) hypertension; G43.909 Migraine, unspecified, not intractable, without status migrainosus; Z68.38 Body mass index [BMI] 38.0-38.9, adult; K21.9 Gastro-esophageal reflux disease without esophagitis; M54.9 Dorsalgia, unspecified; Z20.822 Contact with and (suspected) exposure to COVID-19; Z79.899 Other long term (current) drug therapy
CPT/HCPCS: 36415; 80048; 80053; 80061; 83036; 83525; 84443; 85014; 85018; 85025; 85610; 85730; 86140; 86850; 86900; 86901; 87635; 88307; 88342; A4649; C9088; J0131; J0690; J1100; J1170; J2250; J2370; J2405; J2550; J2795; J3010

== ENCOUNTER → 2022-09-19 10:26 | Outpatient (BNVA) | payer MEDICAID, SELFPAY | PROVIDERS: PCP Family Medicine; Visit Provider Physician Assistant Surgical ==

== ENCOUNTER → 2022-10-04 13:12 | Outpatient (BNVA) | payer OTHER, SELFPAY | PROVIDERS: PCP Family Medicine; Visit Provider Dietitian, Registered | DX: E66.9 Obesity, unspecified (principal); Z98.84 Bariatric surgery status; Z68.36 Body mass index [BMI] 36.0-36.9, adult | CPT/HCPCS: 97803 ==

== ENCOUNTER → 2022-10-10 10:29 | Outpatient (BNVA) | payer OTHER, SELFPAY | PROVIDERS: PCP Family Medicine; Visit Provider Dietitian, Registered | DX: E66.9 Obesity, unspecified (principal); Z68.35 Body mass index [BMI] 35.0-35.9, adult | CPT/HCPCS: 97803 ==

== ENCOUNTER → 2022-10-24 11:01 | Outpatient (BNVA) | payer OTHER, SELFPAY | PROVIDERS: PCP Family Medicine; Visit Provider Dietitian, Registered | DX: E66.01 Morbid (severe) obesity due to excess calories (principal); Z68.38 Body mass index [BMI] 38.0-38.9, adult; Z90.3 Acquired absence of stomach [part of] | CPT/HCPCS: 97803 ==

== ENCOUNTER → 2022-11-07 11:40 | Outpatient (BNVA) | payer OTHER, SELFPAY | PROVIDERS: PCP Family Medicine; Visit Provider Dietitian, Registered | DX: E66.9 Obesity, unspecified (principal) | CPT/HCPCS: 97803 ==

== ENCOUNTER 2023-02-02 15:00 | Outpatient (AMB) | payer OTHER, SELFPAY ==
--- NOTE | 2023-02-02 15:05 | A.OFFVIS_ITS ---
Intake VS Expanded 02/02/23 15:19 Height 5 ft 1 in Weight 179 lb BMI 33.8 Body Fat 72.4 Body Fat Percentage 40.4 Muscle Mass 101.2 Visceral Mass 9 Water Mass 76.2 BMR 1,495 Intake Visit Reasons: (OV) PO LSG 09/12/22 Shot Polisher And Inspector Required: No Allergies pineapple Allergy (Severe, Verified 09/19/22 11:05) Anaphylaxis seafood Allergy (Intermediate, Verified 09/19/22 11:05) Hives HPI Nutrition Presentation Details LSG with Dr. Garcia DOS 09/12/22 Preop weight weight at 1wk PO 195# weight at 3wks PO 193# weight at 4wks PO 189# weight at 6 wks - none to report, hasn't been monitoring her weight weight at 8 WKS PO - still no weight to report current weight 179 today at 5 MO PO Reason for consult elevated BMI Diet Assmnt Details usually only has one meal per day - dinner which is chicken and vegetables. doesn't veer from from that as she doesn't like other meats. cooks AR food at home, gave book. I Hydration: Drinking 40 oz of water per day Patient started taking celebrate bariatric multivitamins - tolerating them OK Diagnosis Nutrition problem #1 overweight/obesity As related to (etiology) #1 excess energy intake and physical inactivity As evidenced by (sign/symptom) #1 high BMI Monitoring/Goals Nutrition problem monitoring total energy intake, level of knowledge/skill, total PRO intake, total CHO intake, weight and oral fluids Outcome progress verbalized understanding Learning/Education Readiness to learn fair Stages of change preparation Most Recent Diabetes Results: Cholesterol 208 mg/dL 09/04/22 HDL Cholesterol 39 mg/dL 09/04/22 Triglycerides 81 mg/dL 09/04/22 Creatinine 0.71 mg/dL (0.5-1.4) 09/13/22 Blood Urea Nitrogen 8 mg/dL (9-16) L 09/13/22 Sodium 140 mmol/L (135-145) 09/13/22 Potassium 4.3 mmol/L (3.3-5.1) 09/13/22 Chloride 110 mmol/L (96-108) H 09/13/22 Carbon Dioxide 21 mmol/L (22-29) L 09/13/22 Calcium 8.6 mg/dL (8.4-10.2) 09/13/22 AST 11 U/L (5-31) 09/04/22 ALT 13 U/L (0-31) 09/04/22 Total Protein 7.1 g/dL (6.5-8.0) 09/04/22 Albumin 4.3 g/dL (3.5-5.0) 09/04/22 [facility] Medical History (Updated 09/21/22 @ 00:02 by Chava Medina) Back pain BMI 38.0-38.9,adult Migraines Morbid obesity Surgical History (Updated 09/12/22 @ 10:23 by Sanam García PA-C) H/O elbow surgery H/O: hysterectomy History of delivery Family History (Updated 03/17/22 @ 08:54 by NEGAR Pope) Mother Diabetes Hypertension Epilepsy High cholesterol Father No problems noted. Son No problems noted. Daughter No problems noted. Son Asthma Daughter No problems noted. Son No problems noted. Son No problems noted. Son No problems noted. 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 Needs to focus on structured meals that consist of protein. Can consider smoothies if she does not like plane protein shakes, 1 serving of fruit max. Patient will be due for 6 month postop appointment and will be due for labs. Will resume follow-up appointment with me 1 month later Coding Level of Care Code Nutr Indiv Subseq ([id number]) Diagnoses Obesity (BMI 30-39.9) E66.9 Time Spent (min) 25
[2023-02-02 15:19] VITALS: BMI 33.8
== END 2023-02-02 15:40 | disposition home or self-care (01) ==
PROVIDERS: PCP Family Medicine; Visit Provider Dietitian, Registered
DX: E66.9 Obesity, unspecified (principal)

== ENCOUNTER → 2023-02-02 15:00 | Outpatient (BNVA) | payer OTHER, SELFPAY | PROVIDERS: PCP Family Medicine; Visit Provider Dietitian, Registered | DX: E66.9 Obesity, unspecified (principal); Z68.33 Body mass index [BMI] 33.0-33.9, adult; Z98.84 Bariatric surgery status; Z71.3 Dietary counseling and surveillance | CPT/HCPCS: 97803 ==

== ENCOUNTER 2023-03-07 10:48 | Outpatient (AMB) | payer OTHER, SELFPAY ==
--- NOTE | 2023-03-07 10:51 | A.OFFVIS_ITS ---
Intake VS Expanded 03/07/23 10:59 Height 5 ft 1 in Weight 176 lb 12.8 oz BMI 33.4 BP 146/81 H Blood Pressure Location Rt brachial Blood Pressure Position Sitting Respiratory Rate 16 Pulse 66 Pulse Source Pulse Oximeter Temp 98.9 F Temperature Source Temporal Artery Scan Pulse Oximetry 99 Oxygen Delivery Method Room Air Body Fat 54.0 Body Fat Percentage 30.6 Free Fat Mass 122.6 Muscle Mass 116.4 Visceral Mass 5.0 Water Mass 87.6 BMR 1,654 Intake Visit Reasons: (OV) PO LSG 09/12/22 Call Center Operations Manager Required: No Allergies pineapple Allergy (Severe, Verified 03/07/23 10:52) Anaphylaxis seafood Allergy (Intermediate, Verified 03/07/23 10:52) Hives Medication List - Last Reconciled 03/07/23 by RADHA Cordon [celebrate MVI PO DAILY] sumatriptan succinate 25 mg PO Q2-4H PRN HPI HPI Comments History of Present Illness Details This?a?38?yo female who is s/p LSG without hiatal hernia repair on?09/12/22. Presents for 6 month post op visit. Weight today is 176.8 pounds, with a BMI of 33.4. There has been a 42.4 pound weight loss,(initial weight 219.2 pounds) since starting the program on 03/29/22 reflecting a 19.3% total body weight loss and a weight loss of 27.7 pounds since surgery (operative weight 204.5 pounds) reflecting a 13.5% TBWL since surgery. No complaints of nausea, emesis, abdominal pain or reflux. Reports infrequent but normal bowel movements every 1- 2 days. She feels as though things are going well. She states she wants to lose more weight. Present meal plan includes: 1 HB egg celebrate bar 2 oz chicken, 2 oz veg another bar Drinking 96 oz water, no soda or juice ? Exercise routine includes: walking outside, daily, up to 2 hours, 300 calories Any post op complications: none DAXA: never DM: never HTN: never Hyperlipidemia: never GERD:?0-5 scale ??0 = no symptoms ??1 = symptoms noticeable but not bothersome 2 =symptoms bothersome but not daily ? 3 = symptoms bothersome and daily 4 = symptoms affect daily activities 5 = symptoms are incapacitating, unable to do daily activities ? How bad is the heartburn: 0 ? Heartburn while lying down: 0 ? Heartburn when standing up: 0 ? Heartburn after meals: 0 ? Does heartburn change your diet: 0 ? Does heartburn wake you up from sleep: 0 ? Do you have difficulty swallowin ? Do you have pain with swallowin ? If you take medicine for your reflux, does this affect your daily life: 0 Satisfaction with present condition - satisfied or not satisfied: satisfied [facility] Medical History BMI 38.0-38.9,adult Back pain Migraines Morbid obesity Surgical History H/O elbow surgery History of delivery H/O: hysterectomy Family History Mother Diabetes Hypertension Epilepsy High cholesterol Father No problems noted. Son No problems noted. Daughter No problems noted. Son Asthma Daughter No problems noted. Son No problems noted. Son No problems noted. Son No problems noted. 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 year old) Do you presently have visiting nurse or other home services: No Alcohol intake: never Patient Tobacco Use Status: Never used Tobacco service: No Review of Systems Const All systems reviewed & are unremarkable except as noted in HPI and below Physical Exam Vital Signs: Last Vital Signs Temp 98.9 F 03/07/23 10:59 Pulse 66 03/07/23 10:59 Resp 16 03/07/23 10:59 BP 146/81 H 03/07/23 10:59 Pulse Ox 99 03/07/23 10:59 Oxygen Delivery Method Room Air 03/07/23 10:59 BMI result Body Mass Index 33.4 Const General: cooperative and no acute distress Orientation/consciousness: patient oriented x3 Resp Effort & Inspection: normal respiratory effort Auscultation: clear to auscultation bilaterally Cardio Rate: regular rate Rhythm: regular rhythm GI Inspection: Yes normal to inspection and Yes incision (well healed) Palpation (GI): Soft to palpation and no masses Neuro General: patient oriented x3 Assessment & Plan Assessment & Plan (1) Obesity: Code(s): E66.9 - Obesity, unspecified Qualifiers: Obesity classification: adult class 1 (BMI 30 - 34.9) Body mass index: BMI 33.0-33.9 Plan: Discussed consistency and to increase intake by another egg or another 2 oz of protein at her meal. Discussed continuing to track calories w exercise Will check 6 month post op labs She will discuss w Aileen a new MVI as she doesn't like how the celebrate sits in her stomach, discussed having at her largest meal. Orders: Orders IRON PROFILE Today E51.9 - Thiamine deficiency, unspecified, E53.8 - Deficiency of other specified B group vitamins, E66.9 - Obesity, unspecified, Z98.84 - Bariatric surgery status Complete Blood Count Auto Diff Today E51.9 - Thiamine deficiency, unspecified, E53.8 - Deficiency of other specified B group vitamins, E66.9 - Obesity, unspeci fied, Z98.84 - Bariatric surgery status Zinc Today E51.9 - Thiamine deficiency, unspecified, E53.8 - Deficiency of other specified B group vitamins, E66.9 - Obesity, unspecified, Z98.84 - Bariatric surgery status C Reactive Protein Today E51.9 - Thiamine deficiency, unspecified, E53.8 - Deficiency of other specified B group vitamins, E66.9 - Obesity, unspecified, Z98.84 - Bariatric surgery status PTHI Today E51.9 - Thiamine deficiency, unspecified, E53.8 - Deficiency of other specified B group vitamins, E66.9 - Obesity, unspecified, Z98.84 - Bariatric surgery status Vitamin D 25-OH Total Today E51.9 - Thiamine deficiency, unspecified, E53.8 - Deficiency of other specified B group vitamins, E66.9 - Obesity, unspecified, Z98.84 - Bariatric surgery status Hemoglobin A1c Today E51.9 - Thiamine deficiency, unspecified, E53.8 - Deficiency of other specified B group vitamins, E66.9 - Obesity, unspecified, Z98.84 - Bariatric surgery status Insulin Today E51.9 - Thiamine deficiency, unspecified, E53.8 - Deficiency of other specified B group vitamins, E66.9 - Obesity, unspecified, Z98.84 - Bariatric surgery status Lipid Panel Today E51.9 - Thiamine deficiency, unspecified, E53.8 - Deficiency of other specified B group vitamins, E66.9 - Obesity, unspecified, Z98.84 - Bariatric surgery status Vitamin B12 and Folate Today E51.9 - Thiamine deficiency, unspecified, E53.8 - Deficiency of other specified B group vitamins, E66.9 - Obesity, unspecified, Z98.84 - Bariatric surgery status Vitamin B1 Today E51.9 - Thiamine deficiency, unspecified, E53.8 - Deficiency of other specified B group vitamins, E66.9 - Obesity, unspecified, Z98.84 - Bariatric surgery status Vitamin A Today E51.9 - Thiamine deficiency, unspecified, E53.8 - Deficiency of other specified B group vitamins, E66.9 - Obesity, unspecified, Z98.84 - Bariatric surgery status Ferritin Today E51.9 - Thiamine deficiency, unspecified, E53.8 - Deficiency of other specified B group vitamins, E66.9 - Obesity, unspecified, Z98.84 - Bariatric surgery status TSH reflex Free T4 Today E51.9 - Thiamine deficiency, unspecified, E53.8 - Deficiency of other specified B group vitamins, E66.9 - Obesity, unspecified, Z98.84 - Bariatric surgery status Basic Metabolic Panel Today E51.9 - Thiamine deficiency, unspecified, E53.8 - Deficiency of other specified B group vitamins, E66.9 - Obesity, unspecified, Z98.84 - Bariatric surgery status Coding Level of Care Code Est Pt Level 4 (74277) Diagnoses Obesity E66.9 Obesity classification: adult class 1 (BMI 30 - 34.9) Body mass index: BMI 33.0-33.9 Time Spent (min) 40
[2023-03-07 10:59] VITALS: BP 146/81; PULSE 66; RESP 16; TEMP 37.2; O2SAT 99; BMI 33.4
== END 2023-03-07 11:25 | disposition home or self-care (01) ==
PROVIDERS: PCP Family Medicine; Visit Provider Physician Assistant Surgical
DX: E66.9 Obesity, unspecified (principal)
CPT/HCPCS: 99214

== ENCOUNTER 2023-03-07 10:48 | Outpatient (REF) | payer OTHER, SELFPAY | END 2023-03-07 10:49 | disposition home or self-care (01) | LOC: HO.LAB 10:48 | PROVIDERS: PCP Family Medicine; Visit Provider Physician Assistant Surgical | DX: Z13.89 Encounter for screening for other disorder (principal) ==